=== PATIENT | female | born 1935 | race Caucasian/White ===

== ENCOUNTER 2016-05-16 16:25 | Inpatient (IN) | payer MEDICARE ==
[~2016-05-16] VITALS: Ht 162.6 cm; Wt 100.4 kg
[~2016-05-16 16:25] MED LIST: ASPIRIN E.C. 8181 MG PO; ZEBETA 5MG5 MG PO
[2016-05-16 17:09] VITALS: BP 148/59; PULSE 66; TEMP 100
[2016-05-16] MEDS ORDERED: PLAVIX 75MG TAB75 MG PO (19:17)
[2016-05-16] MEDS ORDERED: PROTONIX 40MG T40 MG PO (19:17)
[2016-05-16] MEDS ORDERED: ZEBETA10 MG PO (19:19)
[2016-05-16] MEDS ORDERED: TYLENOL 325MG325 MG PO (19:20)
[2016-05-16] MEDS ORDERED: VASOTEC 5MG5 MG/TAB PO (19:22)
[2016-05-16] MEDS ORDERED: [UNRECOGNIZED DRUG - OTHER] (23:27)
[2016-05-17 03:58] VITALS: BP 153/61; PULSE 63; TEMP 98.7
[2016-05-17 06:00] VITALS: BP 137/60; PULSE 62; TEMP 99.2
[2016-05-17 16:36] VITALS: BP 147/57; PULSE 56; TEMP 98
[2016-05-18 04:27] VITALS: BP 132/61; PULSE 58; TEMP 98.1
[2016-05-18 16:29] VITALS: BP 150/68; PULSE 57; TEMP 97.7
[2016-05-19 04:34] VITALS: BP 134/56; PULSE 64; TEMP 98
[2016-05-19 16:50] VITALS: BP 131/94; PULSE 71; TEMP 98.5
[2016-05-20 05:06] VITALS: BP 125/83; PULSE 81; TEMP 98.3
[2016-05-20 16:22] VITALS: BP 117/53; PULSE 52; TEMP 98.5
[2016-05-21 05:14] VITALS: BP 146/63; PULSE 86; TEMP 97.9
[2016-05-21 17:31] VITALS: PULSE 52; TEMP 97.8
[2016-05-22 05:17] VITALS: BP 122/46; PULSE 66; TEMP 98.6
[2016-05-22 17:28] VITALS: BP 138/55; PULSE 55; TEMP 99.7
[2016-05-23 04:19] VITALS: BP 140/53; PULSE 76; TEMP 97.6
[2016-05-23 18:00] VITALS: BP 141/62; PULSE 47; TEMP 98.4
[2016-05-24 02:45] VITALS: BP 131/41; PULSE 56; TEMP 98.2
== END 2016-05-24 16:45 | disposition home or self-care (01) | DRG 948 ==
DX: R53.81 Other malaise (principal); I35.0 Nonrheumatic aortic (valve) stenosis; Z95.2 Presence of prosthetic heart valve; I10 Essential (primary) hypertension; E88.81 Metabolic syndrome and other insulin resistance; Z87.891 Personal history of nicotine dependence
CPT/HCPCS: 99222-AI; 99232-AI; 99239; J1650

== ENCOUNTER 2016-10-24 13:22 | Inpatient (IN) | payer MEDICARE ==
[~2016-10-24] VITALS: Ht 167.6 cm; Wt 100.6 kg
[~2016-10-24 13:22] MED LIST changes: +PLAVIX 75MG TAB75 MG PO; +PROTONIX 40MG T40 MG PO; +TYLENOL 325MG325 MG PO; +VASOTEC 5MG5 MG/TAB PO; +ZEBETA10 MG PO; +[UNRECOGNIZED DRUG - OTHER]
[2016-10-24] MEDS ORDERED: K-DUR20 MEQ PO (14:52)
[2016-10-24] MEDS ORDERED: PRINIVIL20 MG PO (14:52)
[2016-10-24 14:56] LABS: BASO # 0.1 (0.0-0.2); BASO % 0.4 % (0.0-2.0); EOS # 0.2 (0.0-0.7); GRAN # 13.3 (1.4-6.5); GRAN % 79.6 % (42.2-75.2); HEMOGLOBIN 12.5 g/dl (12.5-16.0); LYMPH # 1.7 (1.2-3.4); LYMPH % 10.5 % (20.0-51.0); MEAN CELL VOLUME 92 fl (80.0-100.0); MEAN CORPUSCULAR HEMOGLOBIN 31 pg (27.0-31.0); MEAN CORPUSCULAR HGB CONC 34 g/dl (33.0-37.0); MEAN PLATELET VOLUME 10.8 fl (7.4-10.4); MONO # 1.3 (0.1-0.6); PLATELET COUNT 207 K/mm3 (130-400); RED BLOOD COUNT 3.99 M/mm3 (4.10-5.30); REDCELL DISTRIBUTION WIDTH-CV 13.4 % (11.5-14.5); WHITE BLOOD COUNT 16.6 K/mm3 (4.8-10.8)
[2016-10-24 14:57] LABS: HEMATOCRIT 36.5 % (37.0-47.0)
[2016-10-24 15:07] LABS: ADJUSTED CALCIUM 9.6 mg/dL (8.4-10.2); ALANINE AMINOTRANSFERASE 67 U/L (9-52); ALBUMIN 3.5 gm/dL (3.5-5.0); ALKALINE PHOSPHATASE 90 U/L (50-136); ANION GAP 9 mmol/L (7-16); BILIRUBIN,TOTAL 1.1 mg/dL (0.0-1.0); BLOOD UREA NITROGEN 21 mg/dL (7-17); CALCIUM 9.2 mg/dL (8.4-10.2); CARBON DIOXIDE 23 mmol/L (22-30); CHLORIDE 101 mmol/L (98-107); CREATININE, serum 0.87 mg/dL (0.52-1.25); GLUCOSE 127 mg/dL (74-106); LIPASE 140 U/L (23-300); POTASSIUM 3.3 mmol/L (3.4-5.0); SODIUM 133 mmol/L (137-145)
[2016-10-24 15:08] LABS: PH 6 (5-8); URINE APPEARANCE Hazy; URINE BACTERIA Occasional /hpf; URINE BILIRUBIN Negative (NEGATIVE); URINE BLOOD Negative (NEGATIVE); URINE COLOR Amber; URINE GLUCOSE Negative (NEGATIVE); URINE KETONE Negative (NEGATIVE); URINE UROBILINOGEN Negative (NEGATIVE)
[2016-10-24 15:18] LABS: TROPONIN-I < 0.012 ng/mL (0.000-0.034)
[2016-10-24 15:32] LABS: C-REACTIVE PROTEIN 23.1 mg/dL (0.0-0.9)
[2016-10-24 18:24] VITALS: BP 170/85; PULSE 57; TEMP 98.8
[2016-10-24 22:34] VITALS: BP 140/54; PULSE 61; TEMP 98.5
[2016-10-25] VITALS (12 sets, daily range): BP systolic 133–175; BP diastolic 59–86; PULSE 52–74; TEMP 97.3–98.3
[2016-10-26 01:36] VITALS: BP 155/64; PULSE 52; TEMP 98.3
[2016-10-26 06:00] VITALS: BP 174/71; PULSE 63; TEMP 97.5
[2016-10-26 10:05] VITALS: BP 165/38; PULSE 64; TEMP 98.2
[2016-10-26 13:32] VITALS: BP 163/64; PULSE 68; TEMP 98.5
[2016-10-26 17:47] VITALS: BP 154/73; PULSE 66; TEMP 98.3
[2016-10-26 22:12] VITALS: BP 140/50; PULSE 65; TEMP 97.5
[2016-10-27 05:32] VITALS: BP 168/78; PULSE 65; TEMP 98.2
[2016-10-27 09:31] VITALS: BP 169/75; PULSE 66; TEMP 98.5
[2016-10-27 14:14] VITALS: BP 172/61; PULSE 62; TEMP 98.2
[2016-10-27] MEDS ORDERED: MOTRIN 600600 MG/TAB PO (15:11)
[2016-10-27] MEDS ORDERED: NORCO 325 MG-51 TAB PO (15:11)
== END 2016-10-27 17:35 | disposition home or self-care (01) | DRG 418 ==
LOC: COL.ER 13:22 → SDCO 16:30 → SURG 16:30 → SDCO 18:00 → SURG 18:01
PROVIDERS: Emergency Medicine; Surgery
PROC: BF101ZZ Fluoroscopy of Bile Ducts using Low Osmolar Contrast (ICD-10-PCS; 2016-10-25)
PROC: 0FT44ZZ Resection of Gallbladder, Percutaneous Endoscopic Approach (ICD-10-PCS; principal; 2016-10-25 08:30)
DX: K81.0 Acute cholecystitis (principal); E87.1 Hypo-osmolality and hyponatremia; I10 Essential (primary) hypertension; E87.6 Hypokalemia; E86.0 Dehydration; R73.9 Hyperglycemia, unspecified
CPT/HCPCS: OP; J1100; J1170; J1335; J2405; J2543; J2704; J2710; J2765; J7030; J7050; J7120; Q9967

== ENCOUNTER → 2020-05-07 | Outpatient (CLI) | payer MEDICARE ==
[~2020-05-07] MED LIST changes: +K-DUR20 MEQ PO; +MOTRIN 600600 MG/TAB PO; +NORCO 325 MG-51 TAB PO; +PRINIVIL20 MG PO
== END ==
LOC: ZCOL.LAB 15:21
DX: M79.89 Other specified soft tissue disorders (principal)